=== PATIENT | female | born 1980 | race Hispanic/Latino ===

== ENCOUNTER 2017-06-04 15:55 | Emergency (ER) | payer OTHER ==
--- NOTE | 2017-06-04 19:10 | ED PDOC ---
HPI: General Adult Time Seen by Provider: 06/04/17 16:18 Chief Complaint (Nursing): Abnormal Labs Chief Complaint (Provider): Requesting rhogam History Per: Patient History/Exam Limitations: no limitations Additional Complaint(s): Patient, approximately 28 weeks , sent to ER by her OB Dr. Amos for rhogam injection. Patient is rh negative. Brought copy of blood work showing patients blood type is O negative. Otherwise: (-) abdominal pain, (-) vaginal bleeding, (-) fever. PMD: Dr. Chintan Montoya Past Medical History Reviewed: Historical Data, Nursing Documentation, Vital Signs Vital Signs: Last Vital Signs Temp 98 F 06/04/17 19:30 Pulse 72 06/04/17 19:30 Resp 18 06/04/17 19:30 BP 120/72 06/04/17 19:30 Pulse Ox 100 06/04/17 19:30 - Family History Family History: States: Unknown Family Hx - Allergies Allergies/Adverse Reactions: Allergies Allergy/AdvReac Type Severity Reaction Status Date / Time No Known Allergies Allergy Verified 06/04/17 16:05 Review of Systems ROS Statement: Except As Marked, All Systems Reviewed And Found Negative Constitutional: Negative for: Fever Gastrointestinal: Negative for: Abdominal Pain Genitourinary Female: Negative for: Vaginal Bleeding Physical Exam - Reviewed Nursing Documentation Reviewed: Yes Vital Signs Reviewed: Yes - Physical Exam Comments: SKIN: Warm, dry; (-) cyanosis. EYES: (-) conjunctival pallor, (-) scleral icterus. ENMT: Mucous membranes moist. NECK: (-) tenderness, (-) stiffness, (-) lymphadenopathy. CHEST AND RESPIRATORY: (-) rales, (-) rhonchi, (-) wheezes; breath sounds equal bilaterally. HEART AND CARDIOVASCULAR: (-) irregularity; (-) murmur, (-) gallop. ABDOMEN AND GI: (+) gravid; Bowel sounds active; (-) tenderness, (-) distention , (-) guarding, (-) rebound, (-) palpable masses, (-) CVA tenderness. EXTREMITIES: (-) deformity, (-) edema, (+) distal pulses. NEURO AND PSYCH: Mental status as above; (-) focal findings. - ECG O2 Sat by Pulse Oximetry: 97 (RA) Pulse Ox Interpretation: Normal Medical Decision Making Medical Decision Making: Time: 17:16 Plan: * Rhogam * Blood type and screen Blood type: O NEGATIVE Patient given rhogam IM. Advised to follow up with her filling machine operator in 1-2 days without fail. Return to the emergency room at any time for any new or worsening symptoms. Patient states she fully agrees with and understands discharge instructions. States that she agrees with the plan and disposition. Verbalized and repeated discharge instructions and plan. I have given the patient opportunity to ask any additional questions. Scribe Attestation: Documented by Nanci Chavez, acting as a scribe for Desirae Chambers PA-C Provider Scribe Attestation: All medical record entries made by the Scribe were at my direction and personally dictated by me. I have reviewed the chart and agree that the record accurately reflects my personal performance of the history, physical exam, medical decision making, and the department course for this patient. I have also personally directed, reviewed, and agree with the discharge instructions and disposition. Disposition - Clinical Impression Clinical Impression: Need for rhogam due to Rh negative mother - Patient ED Disposition Is Patient to be Admitted: No Counseled Patient/Family Regarding: Diagnosis, Need For Followup - Disposition Disposition: Routine/Home Disposition Time: 19:00 Condition: STABLE Additional Instructions: Thank you for letting us take care of you today. The emergency medical care you received today was directed at your acute symptoms. Return to the Emergency Department if your symptoms worsen, do not improve, or if you have any other problems. Please contact your doctor in 2 days for re-evaluation and follow up. Bring any paperwork you were given at discharge with you along with any medications you are taking to your follow up visit. Our treatment cannot replace ongoing medical care by a primary care provider (PCP) outside of the emergency department. Thank you for allowing the [facility] team to be part of your care today. 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
[2017-06-04 19:31] VITALS: BP 120/72; PULSE 72; RESP 18; TEMP 98
[2017-06-04 19:35] VITALS: O2SAT 97
== END 2017-06-04 19:33 | disposition home or self-care (01) ==
LOC: H.ER 15:55
DX: O36.0191 Maternal care for anti-D [Rh] antibodies, unspecified trimester, fetus 1 (principal); Z3A.28 28 weeks gestation of pregnancy
CPT/HCPCS: 86850; 86900; 99281; J2792

== ENCOUNTER 2017-08-25 19:30 | Inpatient (IN) | payer OTHER ==
[2017-08-25 19:52] VITALS: BMI 29.9
[2017-08-25] MEDS ORDERED: Lactated Ringer's 1,000 ML IV SCH (20:15)
[2017-08-25] MEDS ORDERED: Oxytocin 30 units/LR 500ML 30 U/500 ML BAG IV SCH (20:15)
[2017-08-25 20:42] LABS: BASO # 0.1 K/uL (0.0-0.2); BASO % 0.4 % (0.0-2.0); EOS # 0.2 K/uL (0.0-0.7); EOS % 1.2 % (0.0-4.0); HEMOGLOBIN 13.1 g/dL (12.0-16.0); LYMPH # 1.8 K/uL (1.0-4.3); LYMPH % 12.8 % (20.0-40.0); MEAN CELL VOLUME 93.1 fl (81.0-99.0); MEAN CORPUSCULAR HGB CONC 34.4 g/dL (33.0-37.0); MEAN PLATELET VOLUME 9.7 fl (7.2-11.7); MONO # 0.9 K/uL (0.0-0.8); MONO % 6.4 % (0.0-10.0); NEUT # 10.9 K/uL (1.8-7.0); NEUT % 79.2 % (50.0-75.0); NRBC % 0.2 % (0.0-0.0); RBC 4.1 Mil/uL (3.80-5.20); RED CELL DISTRIBUTION WIDTH 13.7 % (11.5-14.5); WHITE BLOOD COUNT 13.8 K/uL (4.8-10.8)
[2017-08-26] MEDS: Lactated Ringer's 1,000 ML IV SCH ×2 (04:00→05:00)
[2017-08-26] MEDS ORDERED: Fentanyl/Bupivacaine HCl 250 ML EPI ONE (05:17)
[2017-08-26] MEDS ORDERED: Bupivacaine HCl 0.25% PF (10 ml) Inj ONE (05:23)
[2017-08-26] MEDS ORDERED: Lidocaine 2% Inj (20ml) ONE (06:59)
--- NOTE | 2017-08-26 12:15 | OBDS ---
DELIVERY PERSONNEL Delivery Doctor: Kimani Amos MD Manager Social Work: Isis Mo RN MATERNAL INFORMATION Delivery Anesthesia: Epidural Medications in Delivery: Pitocin 30units in LR 500ml Estimated Blood Loss (ml): 200 Placenta Cultured: No Maternal Complications: None Provider Comments: Normal spontaneous vaginal delivery. Patient delivered viable infant male with Apgars of 9 and 9 at one and 5 minutes respectively. Luis Alfredo centa delivered spontaneously. No lacerations, perineum intact. Uterus firm and appropriately hemosta tic following delivery. Patient tolerated well. Cord gases collected, cord blood collected. No compli cations. Estimated blood loss 200 mL. LABOR SUMMARY No. Babies in Womb: 1 LABOR INFORMATION Onset of Labor: 08/25/2017 22:00 Complete Dilatation: 08/26/2017 11:25 Cervical Ripening Agents: Cervidil (Annotations: Cervidil removed ) Group B Beta Strep: Negative MEMBRANES Membranes Rupture Method: Spontaneous Rupture of Membranes: 08/26/2017 06:50 Amniotic Fluid Color: Light Meconium Amniotic Fluid Amount: Small Amniotic Fluid Odor: Normal STAGES OF LABOR Stage 1 hrs: 13 Stage 1 min: 25 VAGINAL DELIVERY Episiotomy: None Laceration Extension: N/A Laceration Type: None Laceration Repair: Not Applicable
[2017-08-26] MEDS ORDERED: Oxycodone/Acetaminophen 5/325 mg Tab PO PRN ×4 (13:57→14:26)
[2017-08-27 06:52] LABS: HEMOGLOBIN 11.6 g/dL (12.0-16.0); MEAN CELL VOLUME 93.3 fl (81.0-99.0); MEAN CORPUSCULAR HEMOGLOBIN 31.6 pg (27.0-31.0); MEAN CORPUSCULAR HGB CONC 33.9 g/dL (33.0-37.0); RBC 3.69 Mil/uL (3.80-5.20); RED CELL DISTRIBUTION WIDTH 13.8 % (11.5-14.5); WHITE BLOOD COUNT 14.2 K/uL (4.8-10.8)
[2017-08-27] MEDS: Multivitamin With Minerals Tab PO SCH (08:35)
[2017-08-27] MEDS ORDERED: Multivitamin With Minerals Tab PO SCH (09:00)
[2017-08-28] MEDS: Multivitamin With Minerals Tab PO SCH (08:07)
--- NOTE | 2017-08-28 08:15 | OBPPN ---
Datetime: 08/27/2017 12:00 PP Pain Prov: Within normal limits PP Nausea Prov: Denies PP Flatus Prov: Yes PP Breasts Prov: Normal PP Heart Prov: Normal PP Lungs Prov: Normal PP Abdomen/Uterus Prov: Normal PP Lochia Prov: Normal PP Vulva/Perineum Prov: Normal PP CVA Tenderness Prov: Normal PP Extremities Prov: Normal PP Progress Prov: Normal PP Impression Prov: Normal progression PP Plan Prov: Continue present management PP Progress Note Prov: Late entry Aug 28 for Torie 27 12pm Pt seen on rounds. No complaints H/H Rh neg ; BABY Rh neg A: S/P day 1 PLAN anticiapte discharge day 2 Vital Signs Provider PP: Reviewed; Within Normal Limits
--- NOTE | 2017-08-28 08:45 | OBPPN ---
Datetime: 08/28/2017 08:15 PP Pain Prov: Within normal limits PP Nausea Prov: Denies PP Flatus Prov: Yes PP BM Prov: Yes (Annotations: Data stored by CPN on behalf of user) PP Breasts Prov: Normal PP Heart Prov: Normal PP Lungs Prov: Normal PP Abdomen/Uterus Prov: Normal PP Lochia Prov: Normal PP Vulva/Perineum Prov: Normal PP CVA Tenderness Prov: Normal PP Extremities Prov: Normal PP Progress Prov: Normal PP Impression Prov: Normal progression PP Plan Prov: Discharge PP Progress Note Prov: She feels fine ready to go home A; S/P day 2 PLAN: dischsarge home and follow up in 6w Vital Signs Provider PP: Reviewed; Within Normal Limits
--- NOTE | 2017-08-28 08:56 | OBDCSUM ---
Datetime: 08/28/2017 08:43 Discharged to, Provider: Home Follow up at, Provider: Anuradha Disch Instr Activity: Normal activity Disch Instr Diet: Regular Discharge Instructions, Provider: Routine instructions given Discharge Diagnosis, Provider: Term Delivered Follow up in weeks, Provider: 6w Disch Referrals: None Contraception discussed, Prov: Yes Disch Activity Restrictions: No sexual activity; Nothing in vagina - Spangle, tampons, douche Contraception after Delivery: Undecided
[2017-08-28 19:10] VITALS: BP 98/62; PULSE 74; RESP 20; TEMP 98.7; O2SAT 100
== END 2017-08-28 11:30 | disposition home or self-care (01) | DRG 775 ==
LOC: H.L&D 20:06 → H.OB/GYN 08-26 14:25
PROVIDERS: ADMIT Obstetrics & Gynecology Gynecology; ATTEND Obstetrics & Gynecology Gynecology
PROC: 10E0XZZ Delivery of Products of Conception, External Approach (ICD-10-PCS; principal; 2017-08-25)
PROC: 4A1HXCZ Monitoring of Products of Conception, Cardiac Rate, External Approach (ICD-10-PCS; 2017-08-25)
DX: O48.0 Post-term pregnancy (principal); Z37.0 Single live birth; Z3A.40 40 weeks gestation of pregnancy